=== PATIENT | female | born 1995 ===

== ENCOUNTER → 2025-01-24 09:43 | Outpatient (CLI) | payer OTHER ==
[2025-01-24 10:31] LABS: BASO % 0.7 % (0.1-1.2); EOS # 0.06 (0.04-0.54); EOS % 1.3 % (0.7-7.0); LYMPH # 0.96 (1.18-3.74); LYMPH % 21.2 % (19.3-53.1); MEAN PLATELET VOLUME 10.60 fl (9.4-12.4); MONO # 0.21 (0.24-0.82); MONO % 4.6 % (4.7-12.5); NEUT # 3.26 (1.56-6.13); NEUT % 72.0 % (34.0-71.1); RED CELL DISTRIBUTION WIDTH 11.2 % (11.6-14.4)
[2025-01-24 11:09] LABS: ALT/SGPT 18.0 U/L (12-78); AST/SGOT 8.0 U/L (15-37); BILIRUBIN TOTAL 0.75 mg/dL (0.3-1.2); BUN CREA RATIO 17.0 (7.0-25.0); CHOL HDL RATIO 2.2 (0-5.0); CREATININE SERUM 0.71 mg/dL (0.55-1.02); FREE TRIODOTIRONINE 2.47 pg/ml (2.18-3.98); GFR 98.75; GLOBULINA 3.3 G/DL (2.4-3.5); GLUCOSE FASTING 80.0 mg/dL (65-100); HDL 47.0 mg/dl (40-60); LDL 51.0 mg/dl (0-130); OSMOLALITY SERUM 280.0 MOSM/KG (275-295); TSH 1.27 uIU/mL (0.358-3.74); VLDL 6.0 (0-39)
[2025-01-26 14:52] LABS: VITAMIN D3 25 HYDROXY 13.11 ng/ml (30-120)
== END | disposition home or self-care (01) ==
LOC: LAB 09:43
PROVIDERS: ATTEND Obstetrics & Gynecology
DX: E55.9 Vitamin D deficiency, unspecified (principal); D50.8 Other iron deficiency anemias; I10 Essential (primary) hypertension; N95.1 Menopausal and female climacteric states; R73.9 Hyperglycemia, unspecified; E28.310 Symptomatic premature menopause; E03.8 Other specified hypothyroidism

== ENCOUNTER 2025-01-29 12:49 | Outpatient (CLI) | payer OTHER | END 2025-01-29 13:07 | disposition home or self-care (01) | LOC: SONOGRAMA 12:49 | PROVIDERS: ATTEND Obstetrics & Gynecology | DX: N83.299 Other ovarian cyst, unspecified side (principal) ==

== ENCOUNTER 2025-03-26 07:32 | Outpatient (CLI) | payer OTHER | END 2025-03-26 07:35 | disposition home or self-care (01) | LOC: LAB 07:32 | PROVIDERS: ATTEND Obstetrics & Gynecology | DX: N92.5 Other specified irregular menstruation (principal) ==